=== PATIENT | male | born 1980 | race Caucasian/White ===

== ENCOUNTER 2024-03-23 19:44 | Emergency (ER) | payer OTHER ==
[2024-03-23 19:49] VITALS: BP 129/90; PULSE 106; RESP 18; TEMP 98.2; BMI 41.5
== END 2024-03-23 21:28 | disposition home or self-care (01) ==
LOC: JER 19:44 → JERFT 19:44
PROC: 09Q1XZZ Repair Left External Ear, External Approach (ICD-10-PCS; principal; 2024-03-23)
DX: S01.312A Laceration without foreign body of left ear, initial encounter (principal); Y04.0XXA Assault by unarmed brawl or fight, initial encounter
CPT/HCPCS: 99283-25